=== PATIENT | male | born 1930 | race Caucasian/White ===

== ENCOUNTER 2018-05-17 06:52 | Inpatient (IN) | payer MEDICARE, BC ==
[~2018-05-17] VITALS: Ht 177.8 cm; Wt 90.0 kg
[~2018-05-17 06:52] MED LIST: ACET-896 PO; ASPI-1264 PO; ATOR20TA PO; MULT1TAB74 PO; POTA8CAP9 PO; VANC250C12 PO
[2018-05-17] MEDS ORDERED: ondansetron/PF 4mg/2ml inj IV ONE (07:00)
[2018-05-17] MEDS ORDERED: normal saline 1000ML IV soln IVB ONE (07:00)
[2018-05-17] MEDS ORDERED: LORazepam 2 mg/ml vial IV ONE (07:00)
[2018-05-17 07:28] LABS: BASOPHILS % (AUTO) 0.3 % (0-1); EOSINOPHILS % (AUTO) 0.1 % (0-6); HEMATOCRIT 41.7 % (42.0-52.0); HEMOGLOBIN 14.3 g/dl (14.0-17.9); LYMPHOCYTES # (AUTO) 0.7 X10'3 (1.1-4.8); LYMPHOCYTES % (AUTO) 5.5 % (21-51); MEAN CORPUSCULAR HEMOGLOBIN 35.6 PG (27.0-31.0); MEAN CORPUSCULAR HGB CONC 34.3 % (33.0-36.5); MEAN CORPUSCULAR VOLUME 103.8 FL (78-98); MEAN PLATELET VOLUME 8.6 FL (7.4-10.4); MONOCYTES % (AUTO) 7.8 % (2-12); NEUTROPHILS # (AUTO) 11.3 X10'3 (1.8-7.7); NEUTROPHILS % (AUTO) 86.3 % (42-75); PLATELET COUNT 224 X10'3 (140-440); RED BLOOD COUNT 4.01 X10'6 (4.70-6.10); WHITE BLOOD COUNT 13.1 X10'3 (4.5-11.0)
[2018-05-17 07:31] LABS: INR 1.1 INR; PARTIAL THROMBOPLASTIN TIME 27 SECONDS (22-32); PROTHROMBIN TIME 11.2 SECONDS (9.0-12.0)
[2018-05-17 07:37] LABS: ALANINE AMINOTRANSFERASE 43 U/L (12-78); ALBUMIN 3.7 G/DL (3.4-5.0); ALBUMIN/GLOBULIN RATIO 1.1 (1.1-1.5); ALKALINE PHOSPHATASE 75 IU/L (46-116); ANION GAP 15 (8-16); ASPARTATE AMINO TRANSFERASE 32 U/L (10-37); BILIRUBIN,TOTAL 1.5 MG/DL (0.1-1.0); BLOOD UREA NITROGEN 27 MG/DL (7-18); BUN/CREATININE RATIO 12.9 (5.4-32.0); CALCIUM 8.1 MG/DL (8.5-10.1); CHLORIDE 109 MMOL/L (99-107); GLUCOSE 148 MG/DL (70-104); SODIUM 143 MMOL/L (135-145); TOTAL CARBON DIOXIDE 19.3 MMOL/L (24-32); TOTAL PROTEIN 7.2 G/DL (6.4-8.2); eGFR 30 ML/MIN
[2018-05-17 07:44] LABS: LIPASE 64 U/L (73-393)
[2018-05-17] MEDS ORDERED: normal saline 1000ml 1,000 ML IV ONE ×2 (07:45→09:10)
[2018-05-17] MEDS ORDERED: iohexol 350MG/ML 100ml bottle IV ONE (07:53)
[2018-05-17] MEDS ORDERED: potassium Cl 20 mEq SR tablet PO STA (07:55)
[2018-05-17] MEDS ORDERED: potassium 10mEq/100ml NS w/LIDOcaine (10mg/bag) IV ONE (07:55)
[2018-05-17 08:07] LABS: CLARITY,URINE CLOUDY (Clear); COLOR,URINE YELLOW (Yellow); GLUCOSE, URINE NEGATIVE (Neg); KETONES,URINE 15 mg/dl (Neg); LEUKOCYTE ESTERASE ,URINE NEGATIVE (Neg); NITRITES, URINE NEGATIVE (Neg); OCCULT BLOOD,URINE TRACE-INTACT (Neg); PROTEIN,URINE 30 mg/dl (Neg)
[2018-05-17 08:08] LABS: UA COLLECTION TYPE STRAIGHT CATH
[2018-05-17 08:13] LABS: MAGNESIUM 1.3 MG/DL (1.5-2.4)
[2018-05-17 08:40] LABS: BACTERIA,URINE 1+ /HPF (Neg); MUCUS STRANDS FEW /LPF (Neg); SQUAMOUS EPITHELIAL CELL,UR MODERATE /LPF (FEW); WBC,URINE 0-4 /HPF (0-4)
[2018-05-17 09:01] LABS: ABG BASE EXCESS -8.3 mmol/L (-2.0-3.0); ABG HCO3 17.3 mmol/L (22.0-26.0); ABG PCO2 (T) 36.3 mmHg (35.0-48.0); ABG PH (T) 7.297 (7.350-7.450); ABG PO2 (T) 72.1 mmHg (83-108); ALLEN'S TEST Positive; FCOHb 0.8 % (0.5-1.5); FMetHb 0.3 % (0.3-1.12); TOTAL HEMOGLOBIN 13.7 G/dl (14.0-18.0)
[2018-05-17] MEDS ORDERED: magnesium 4gm in 100ml NS 100 ML IV PRN (10:00)
[2018-05-17] MEDS ORDERED: HYDROcodone/acetaminophen 5mg/325mg tablet PO PRN (10:00)
[2018-05-17] MEDS ORDERED: potassium Cl 40MEQ/NS 500ml 500 ML IV PRN ×2 (10:00)
[2018-05-17] MEDS ORDERED: HYDROcodone/acetaminophen 10/325mg tab PO PRN (10:00)
[2018-05-17] MEDS ORDERED: acetaminophen 325mg tablet PO PRN ×2 (10:00)
[2018-05-17] MEDS ORDERED: magnesium 1gm/100ml D5W IVPB 100 ML IV PRN (10:00)
[2018-05-17] MEDS ORDERED: ondansetron/PF 4mg/2ml inj IV PRN (10:00)
[2018-05-17] MEDS ORDERED: potassium Cl 20 mEq SR tablet PO PRN (10:00)
[2018-05-17] MEDS ORDERED: VIT1CAPS9 PO (10:03)
[2018-05-17] MEDS ORDERED: FEXO-124 PO (10:03)
[2018-05-17] MEDS ORDERED: LISI1TAB13 PO (10:03)
[2018-05-17] MEDS ORDERED: CLOP75TA35 PO (10:03)
[2018-05-17] MEDS ORDERED: ATOR80TA PO (10:03)
[2018-05-17] MEDS ORDERED: CHOL500011 PO (10:03)
[2018-05-17] MEDS ORDERED: MULT-16 PO (10:03)
[2018-05-17] MEDS: normal saline 1000ml 1,000 ML IV SCH ×2 (10:45→21:31)
[2018-05-17 12:00] VITALS: BP 91/61
[2018-05-17] MEDS: potassium Cl 20 mEq SR tablet PO PRN ×2 (13:22→18:23)
[2018-05-17] MEDS: magnesium Cl slow-release 64mg tablet PO PRN (13:22)
[2018-05-17 14:27] LABS: C DIFF ANTIGEN NEGATIVE (NEGATIVE); C DIFF SPECIMEN=DIARRHEA? ACCEPTABLE; C DIFFICILE TOXINS A&B NEGATIVE (Neg)
[2018-05-17] MEDS: metroNIDAZOLE-Flagyl 500mg/NS 100 ML IV SCH (16:08)
[2018-05-17 18:00] VITALS: BP 103/53
[2018-05-17] MEDS ORDERED: temazepam 15mg capsule PO PRN (21:00)
[2018-05-17] MEDS: heparin, porcine 5000 units/ml vial SQ SCH (21:30)
[2018-05-17 22:00] VITALS: BP 98/49
[2018-05-18] MEDS: metroNIDAZOLE-Flagyl 500mg/NS 100 ML IV SCH ×3 (00:35→16:08)
[2018-05-18 06:00] VITALS: BP 88/52
[2018-05-18 06:03] LABS: BASOPHILS % (AUTO) 0.2 % (0-1); EOSINOPHILS # (AUTO) 0.1 X10'3 (0-0.9); EOSINOPHILS % (AUTO) 2.6 % (0-6); HEMATOCRIT 35.6 % (42.0-52.0); LYMPHOCYTES # (AUTO) 0.8 X10'3 (1.1-4.8); LYMPHOCYTES % (AUTO) 18.4 % (21-51); MEAN CORPUSCULAR HEMOGLOBIN 35.2 PG (27.0-31.0); MEAN CORPUSCULAR HGB CONC 33.7 % (33.0-36.5); MEAN CORPUSCULAR VOLUME 104.4 FL (78-98); MONOCYTES # (AUTO) 0.7 X10'3 (0-0.9); MONOCYTES % (AUTO) 14.4 % (2-12); NEUTROPHILS % (AUTO) 64.4 % (42-75); PLATELET COUNT 159 X10'3 (140-440); RED BLOOD COUNT 3.41 X10'6 (4.70-6.10); RED CELL DISTRIBUTION WIDTH 14.3 % (11.5-14.5); WHITE BLOOD COUNT 4.6 X10'3 (4.5-11.0)
[2018-05-18 06:15] LABS: ALBUMIN 2.9 G/DL (3.4-5.0); ANION GAP 10 (8-16); BLOOD UREA NITROGEN 16 MG/DL (7-18); BUN/CREATININE RATIO 18.8 (5.4-32.0); CHLORIDE 117 MMOL/L (99-107); CREATININE 0.85 MG/DL (0.60-1.10); GLUCOSE 87 MG/DL (70-104); MAGNESIUM 1.3 MG/DL (1.5-2.4); POTASSIUM 4.3 MMOL/L (3.5-5.1); SODIUM 145 MMOL/L (135-145); TOTAL CARBON DIOXIDE 17.8 MMOL/L (24-32); eGFR 85 ML/MIN
[2018-05-18 07:15] VITALS: BP 93/55
[2018-05-18] MEDS: K and/or MAG REPLACEMENT MC SCH ×2 (07:16→07:17)
[2018-05-18] MEDS: loratadine 10mg tablet PO SCH (07:26)
[2018-05-18] MEDS: heparin, porcine 5000 units/ml vial SQ SCH ×2 (07:27→20:15)
[2018-05-18] MEDS: clopidogrel 75mg tablet PO SCH (07:27)
[2018-05-18] MEDS: magnesium Cl slow-release 64mg tablet PO PRN (07:27)
[2018-05-18] MEDS: normal saline 1000ml 1,000 ML IV SCH ×2 (07:32→16:09)
[2018-05-18 10:00] VITALS: BP 98/53
[2018-05-18] MEDS: sodium bicarbonate 650mg tablet PO SCH ×2 (14:32→22:31)
[2018-05-18] MEDS ORDERED: levoFLOXACIN-Levaquin 500mg/D5 100 ML IV SCH (16:45)
[2018-05-18] MEDS: sodium bicarbonate (8.4%) inj. 100 MEQ in dextrose 5%-water 1,000 ML IV SCH (17:36)
[2018-05-18 18:00] VITALS: BP 107/52
[2018-05-18 22:00] VITALS: BP 91/54
[2018-05-18] MEDS: metroNIDAZOLE 500mg tablet PO SCH (23:49)
[2018-05-19 06:58] VITALS: BP 111/64
[2018-05-19 07:10] LABS: BASOPHILS % (AUTO) 0.2 % (0-1); EOSINOPHILS # (AUTO) 0.2 X10'3 (0-0.9); EOSINOPHILS % (AUTO) 4.1 % (0-6); HEMATOCRIT 36.9 % (42.0-52.0); HEMOGLOBIN 12.3 g/dl (14.0-17.9); LYMPHOCYTES # (AUTO) 1.1 X10'3 (1.1-4.8); MEAN CORPUSCULAR HEMOGLOBIN 34.8 PG (27.0-31.0); MEAN CORPUSCULAR HGB CONC 33.4 % (33.0-36.5); MEAN CORPUSCULAR VOLUME 104.1 FL (78-98); MEAN PLATELET VOLUME 9.2 FL (7.4-10.4); MONOCYTES # (AUTO) 0.7 X10'3 (0-0.9); MONOCYTES % (AUTO) 13.6 % (2-12); NEUTROPHILS # (AUTO) 3.1 X10'3 (1.8-7.7); NEUTROPHILS % (AUTO) 61.1 % (42-75); PLATELET COUNT 158 X10'3 (140-440); RED BLOOD COUNT 3.55 X10'6 (4.70-6.10); WHITE BLOOD COUNT 5.1 X10'3 (4.5-11.0)
[2018-05-19] MEDS: K and/or MAG REPLACEMENT MC SCH (07:12)
[2018-05-19] MEDS: heparin, porcine 5000 units/ml vial SQ SCH (07:26)
[2018-05-19] MEDS: metroNIDAZOLE 500mg tablet PO SCH (07:26)
[2018-05-19] MEDS: sodium bicarbonate (8.4%) inj. 100 MEQ in dextrose 5%-water 1,000 ML IV SCH (07:26)
[2018-05-19] MEDS: clopidogrel 75mg tablet PO SCH (07:26)
[2018-05-19] MEDS: loratadine 10mg tablet PO SCH (07:26)
[2018-05-19 07:27] LABS: ANION GAP 8 (8-16); BLOOD UREA NITROGEN 11 MG/DL (7-18); BUN/CREATININE RATIO 13.6 (5.4-32.0); CALCIUM 8.1 MG/DL (8.5-10.1); CHLORIDE 112 MMOL/L (99-107); CREATININE 0.81 MG/DL (0.60-1.10); GLUCOSE 90 MG/DL (70-104); MAGNESIUM 1.3 MG/DL (1.5-2.4); POTASSIUM 3.7 MMOL/L (3.5-5.1); SODIUM 142 MMOL/L (135-145); TOTAL CARBON DIOXIDE 21.7 MMOL/L (24-32); eGFR 90 ML/MIN
[2018-05-19] MEDS: sodium bicarbonate 650mg tablet PO SCH (07:27)
[2018-05-19] MEDS ORDERED: SODI650T29 PO (09:38)
[2018-05-19] MEDS ORDERED: METR500T4 PO (09:38)
[2018-05-19] MEDS ORDERED: LEVO500T89 PO (09:38)
[2018-05-19 10:00] VITALS: BP 118/69
[2018-05-19] MEDS ORDERED: levoFLOXACIN 500mg tablet PO SCH (11:00)
[2018-05-19] MEDS ORDERED: MAGN400C PO (17:18)
== END 2018-05-19 10:45 | DRG 391 ==
LOC: ER 06:52 → ED HOLD 09:58 → EDBEDREQ 11:33 → ORTHO 4S 12:00
PROVIDERS: ADMIT Internal Medicine; ATTEND Family Medicine
PROC: BW211ZZ Computerized Tomography (CT Scan) of Abdomen and Pelvis using Low Osmolar Contrast (ICD-10-PCS; principal; 2018-05-17)
DX: K52.9 Noninfective gastroenteritis and colitis, unspecified (principal); N17.0 Acute kidney failure with tubular necrosis; N39.0 Urinary tract infection, site not specified; E87.2 Acidosis; E78.00 Pure hypercholesterolemia, unspecified; E78.5 Hyperlipidemia, unspecified; E83.42 Hypomagnesemia; E86.0 Dehydration; I10 Essential (primary) hypertension; I25.10 Atherosclerotic heart disease of native coronary artery without angina pectoris; K57.30 Diverticulosis of large intestine without perforation or abscess without bleeding; K76.9 Liver disease, unspecified; I95.9 Hypotension, unspecified; Z66 Do not resuscitate; Z88.1 Allergy status to other antibiotic agents; Z79.02 Long term (current) use of antithrombotics/antiplatelets; Z79.899 Other long term (current) drug therapy; Z86.73 Personal history of transient ischemic attack (TIA), and cerebral infarction without residual deficits
CPT/HCPCS: 36415; 36600; 71045; 71275; 74176; 80048; 80053; 81001; 82803; 83605; 83690; 83735; 83880; 84100; 84484; 85018; 85025; 85610; 85730; 87040; 87045; 87046; 87070; 87324; 87449; 89055; 93005; 96361; 96374; 96375; 99285; A4353; A6449; J1644; J2060; J2405; J3480; J3490; J7030; Q9967

== ENCOUNTER 2019-10-05 01:09 | Emergency (ER) | payer MEDICARE, BC ==
[~2019-10-05] VITALS: Ht 172.7 cm; Wt 90.9 kg
[~2019-10-05 01:09] MED LIST changes: -ACET-896 PO; -ASPI-1264 PO; -ATOR20TA PO; +ATOR80TA PO; +CHOL500011 PO; +CLOP75TA35 PO; +FEXO-124 PO; +LEVO500T89 PO; +LISI1TAB29 PO; +MAGN400C PO; +METR-159 PO; +MULT-16 PO; -MULT1TAB74 PO; +POTA8CAP20 PO; -POTA8CAP9 PO; +SODI650T29 PO; -VANC250C12 PO; +VIT1CAPS9 PO
[2019-10-05] MEDS ORDERED: CLIN-90 PO (01:48)
[2019-10-05] MEDS ORDERED: clindamycin phosphate 150mg/ml inj. IM ONE (01:50)
[2019-10-05 02:18] VITALS: BP 153/89
== END 2019-10-05 02:20 | disposition home or self-care (01) ==
LOC: ER 01:10
DX: L03.116 Cellulitis of left lower limb (principal); E78.00 Pure hypercholesterolemia, unspecified; I10 Essential (primary) hypertension; Z86.73 Personal history of transient ischemic attack (TIA), and cerebral infarction without residual deficits; Z88.1 Allergy status to other antibiotic agents; Z79.899 Other long term (current) drug therapy
CPT/HCPCS: 73610; 73630; 96372; 99284; J3490

== ENCOUNTER 2020-01-01 12:24 | Emergency (ER) | payer BC, MEDICARE ==
[~2020-01-01] VITALS: Ht 167.6 cm; Wt 89.1 kg
[~2020-01-01 12:24] MED LIST changes: +CLIN-97 PO
[2020-01-01 12:59] LABS: BASOPHILS % (AUTO) 0.4 % (0-1); EOSINOPHILS # (AUTO) 0.2 X10'3 (0-0.9); EOSINOPHILS % (AUTO) 2.3 % (0-6); HEMATOCRIT 46.2 % (42.0-52.0); HEMOGLOBIN 15.7 g/dl (14.0-17.9); LYMPHOCYTES # (AUTO) 1.6 X10'3 (1.1-4.8); LYMPHOCYTES % (AUTO) 22.4 % (21-51); MEAN CORPUSCULAR HEMOGLOBIN 34.6 PG (27.0-31.0); MEAN CORPUSCULAR VOLUME 101.5 FL (78-98); MEAN PLATELET VOLUME 8.3 FL (7.4-10.4); MONOCYTES # (AUTO) 0.6 X10'3 (0-0.9); MONOCYTES % (AUTO) 8.8 % (2-12); NEUTROPHILS # (AUTO) 4.6 X10'3 (1.8-7.7); NEUTROPHILS % (AUTO) 66.1 % (42-75); PLATELET COUNT 251 X10'3 (140-440); RED BLOOD COUNT 4.55 X10'6 (4.70-6.10); RED CELL DISTRIBUTION WIDTH 12.9 % (11.5-14.5); WHITE BLOOD COUNT 6.9 X10'3 (4.5-11.0)
[2020-01-01 13:13] LABS: ALANINE AMINOTRANSFERASE 43 U/L (12-78); ALBUMIN 3.7 G/DL (3.4-5.0); ALKALINE PHOSPHATASE 73 IU/L (46-116); ANION GAP 10 (8-16); ASPARTATE AMINO TRANSFERASE 37 U/L (10-37); BILIRUBIN,TOTAL 1.8 MG/DL (0.1-1.0); BLOOD UREA NITROGEN 8 MG/DL (7-18); BUN/CREATININE RATIO 10.8 (5.4-32.0); CALCIUM 9.1 MG/DL (8.5-10.1); CHLORIDE 109 MMOL/L (99-107); CREATININE 0.74 MG/DL (0.60-1.10); GLUCOSE 95 MG/DL (70-104); POTASSIUM 3.8 MMOL/L (3.5-5.1); SODIUM 147 MMOL/L (135-145); TOTAL CARBON DIOXIDE 28.4 MMOL/L (24-32); TOTAL PROTEIN 7.5 G/DL (6.4-8.2); eGFR > 90 ML/MIN
[2020-01-01] MEDS ORDERED: normal saline 1000ML IV soln IVB ONE (13:30)
--- NOTE | 2020-01-01 13:59 | NUR ---
spoke to esperanza re: pt BP 138/112, he states that this is ok
[2020-01-01 14:12] LABS: CLARITY,URINE SLIGHTLY CLOUDY (Clear); COLOR,URINE YELLOW (Yellow); GLUCOSE, URINE NEGATIVE (Neg); KETONES,URINE NEGATIVE (Neg); LEUKOCYTE ESTERASE ,URINE NEGATIVE (Neg); NITRITES, URINE NEGATIVE (Neg); OCCULT BLOOD,URINE LARGE (Neg); PH,URINE 6.5 (4.8-8.0); PROTEIN,URINE NEGATIVE (Neg); UROBILINOGEN,URINE 0.2 E.U/dL (0.2-1.0)
[2020-01-01 14:18] LABS: UA COLLECTION TYPE URINAL
[2020-01-01 14:30] LABS: MUCUS STRANDS FEW /LPF (Neg); SQUAMOUS EPITHELIAL CELL,UR FEW /LPF (FEW)
[2020-01-01 14:31] LABS: RBC,URINE TNTC /HPF (0-2); WBC,URINE 0-4 /HPF (0-4)
[2020-01-01 14:32] LABS: BACTERIA,URINE 1+ /HPF (Neg)
[2020-01-01 16:53] VITALS: BP 165/95
== END 2020-01-01 17:49 | disposition home or self-care (01) ==
LOC: ER 12:24
DX: R42 Dizziness and giddiness (principal); R53.1 Weakness; M79.10 Myalgia, unspecified site; E78.00 Pure hypercholesterolemia, unspecified; I10 Essential (primary) hypertension; Z86.73 Personal history of transient ischemic attack (TIA), and cerebral infarction without residual deficits; Z88.1 Allergy status to other antibiotic agents; Z79.2 Long term (current) use of antibiotics; Z79.899 Other long term (current) drug therapy
CPT/HCPCS: 36415; 71045; 80053; 81001; 84484; 85025; 93005; 99285; J7030

== ENCOUNTER 2020-04-09 10:52 | Observation (INO) | payer BC, MEDICARE ==
[~2020-04-09] VITALS: Ht 172.7 cm; Wt 85.0 kg
[2020-04-09 11:17] LABS: BASOPHILS % (AUTO) 0.1 % (0-1); EOSINOPHILS # (AUTO) 0.2 X10'3 (0-0.9); EOSINOPHILS % (AUTO) 1.8 % (0-6); HEMATOCRIT 36.8 % (42.0-52.0); HEMOGLOBIN 12.7 g/dl (14.0-17.9); LYMPHOCYTES # (AUTO) 1.5 X10'3 (1.1-4.8); LYMPHOCYTES % (AUTO) 17.6 % (21-51); MEAN CORPUSCULAR HEMOGLOBIN 35.6 PG (27.0-31.0); MEAN CORPUSCULAR HGB CONC 34.5 g/dL (33.0-36.5); MEAN PLATELET VOLUME 8.5 FL (7.4-10.4); MONOCYTES # (AUTO) 0.7 X10'3 (0-0.9); MONOCYTES % (AUTO) 8.2 % (2-12); NEUTROPHILS # (AUTO) 6.1 X10'3 (1.8-7.7); NEUTROPHILS % (AUTO) 72.3 % (42-75); PLATELET COUNT 187 X10'3 (140-440); RED BLOOD COUNT 3.57 X10'6 (4.70-6.10); RED CELL DISTRIBUTION WIDTH 13.4 % (11.5-14.5); WHITE BLOOD COUNT 8.4 X10'3 (4.5-11.0)
[2020-04-09 11:29] LABS: ALANINE AMINOTRANSFERASE 34 U/L (12-78); ALBUMIN 2.9 G/DL (3.4-5.0); ALBUMIN/GLOBULIN RATIO 1.1 (1.1-1.5); ALKALINE PHOSPHATASE 66 IU/L (46-116); ANION GAP 8 (8-16); ASPARTATE AMINO TRANSFERASE 39 U/L (10-37); BLOOD UREA NITROGEN 5 MG/DL (7-18); CALCIUM 7.3 MG/DL (8.5-10.1); CHLORIDE 115 MMOL/L (99-107); CREATININE 0.71 MG/DL (0.60-1.10); POTASSIUM 3.1 MMOL/L (3.5-5.1); SODIUM 149 MMOL/L (135-145); TOTAL CARBON DIOXIDE 25.8 MMOL/L (24-32); TOTAL PROTEIN 5.6 G/DL (6.4-8.2); eGFR > 90 ML/MIN
[2020-04-09 11:31] LABS: GLUCOSE 105 MG/DL (70-104)
[2020-04-09] MEDS ORDERED: aspirin 325mg tablet PO ONE (11:40)
[2020-04-09] MEDS ORDERED: fentaNYL/PF 50MCG/1 ML 2ML syringe IV ONE (11:40)
[2020-04-09] MEDS ORDERED: potassium Cl 20 mEq SR tablet PO STA (11:42)
[2020-04-09] MEDS ORDERED: ASPI-128 PO (12:02)
[2020-04-09] MEDS ORDERED: BETA1TAB20 PO (12:02)
[2020-04-09] MEDS ORDERED: CETI-90 PO (12:02)
[2020-04-09] MEDS ORDERED: LISI-644 PO (12:02)
[2020-04-09] MEDS ORDERED: HYDROcodone/acetaminophen 10/325mg tab PO PRN (12:20)
[2020-04-09] MEDS ORDERED: ondansetron/PF 4mg/2ml inj IV PRN (12:20)
[2020-04-09] MEDS ORDERED: mag hydrox/Alum hydrox/simeth 30ml oral suspension PO PRN (12:20)
[2020-04-09] MEDS ORDERED: magnesium Cl slow-release 64mg tablet PO PRN (12:20)
[2020-04-09] MEDS ORDERED: magnesium 2GM in 50ml NS 50 ML IV PRN (12:20)
[2020-04-09] MEDS ORDERED: potassium CL 10mEq/100ml bag 100 ML IV PRN ×2 (12:20)
[2020-04-09] MEDS ORDERED: magnesium 4gm in 100ml NS 100 ML IV PRN (12:20)
[2020-04-09] MEDS ORDERED: morphine 2 MG/ML inj. syringe IV PRN (12:20)
[2020-04-09] MEDS ORDERED: HYDROcodone/acetaminophen 5mg/325mg tablet PO PRN (12:20)
[2020-04-09] MEDS ORDERED: potassium Cl 20 mEq SR tablet PO PRN (12:20)
[2020-04-09] MEDS ORDERED: magnesium hydroxide 30ml (MOM) UD suspension PO PRN (12:20)
[2020-04-09] MEDS ORDERED: acetaminophen 325mg tablet PO PRN ×2 (12:20)
[2020-04-09] MEDS ORDERED: aspirin/acetaminophen/caffeine tablet PO PRN (12:40)
[2020-04-09] MEDS: clopidogrel 75mg tablet PO SCH (12:40)
--- NOTE | 2020-04-09 14:15 | NUR ---
Recieved report from emergency room FELICIA Adamson. Patient is in room 3028a. Vital signs are 105/56, 67, 94% on 2L, 18 respirations, 97.0 axillary. All needs met at this time. Addendum: 04/09/20 at 1432 by Usha Harper RN ED nurse reports that patient verbalized that he would like to be a DNR, and has the paper work on him. Will notify hospitalist.
--- NOTE | 2020-04-09 14:50 | NUR ---
Awaiting MD orders. PAGER ID: [phone] MESSAGE: Re: [id number]. Sean Mcquene. U. Pt. daughter at bedside. Both vocalize that patient is a DNR and has an Advanced Directive on file at [facility] and within our chart. Please change. Usha Hernandez, #[id number]
[2020-04-09 15:00] VITALS: BP 109/61
--- NOTE | 2020-04-09 15:35 | NUR ---
Awaiting MD orders. PAGER ID: [phone] MESSAGE: Re: Sean Mcqueen. [id number]. PCU. Groin has mild erythema, with moisture and smell of yeast. Would it be possible to order Nystatin powder? Thanks. Usha Hernandez, #[id number]
[2020-04-09 15:40] LABS: HEMOGLOBIN A1C 6.1 % (4.5-6.2)
[2020-04-09 18:00] VITALS: BP 103/58
[2020-04-09 18:10] VITALS: BP 109/61
--- NOTE | 2020-04-09 18:20 | NUR ---
Problems reprioritized. Patient report given, questions answered & plan of care reviewed with FELICIA Gentile.
[2020-04-09] MEDS: potassium Cl 20 mEq SR tablet PO PRN (18:39)
[2020-04-09] MEDS: docusate sod 100mg capsule PO SCH (19:49)
[2020-04-09] MEDS: potassium chloride 8mEq ER tablet PO SCH (19:49)
[2020-04-09] MEDS: K and/or MAG REPLACEMENT MC SCH (19:50)
[2020-04-09] MEDS: nystatin 15 GM powder TP SCH (20:30)
[2020-04-09] MEDS: atorvastatin 20mg tablet PO SCH (20:30)
[2020-04-10 02:00] VITALS: BP 110/78
[2020-04-10] MEDS: potassium Cl 20 mEq SR tablet PO PRN (02:18)
[2020-04-10 05:51] LABS: BASOPHILS % (AUTO) 0.3 % (0-1); EOSINOPHILS # (AUTO) 0.2 X10'3 (0-0.9); EOSINOPHILS % (AUTO) 2.3 % (0-6); HEMATOCRIT 39.6 % (42.0-52.0); HEMOGLOBIN 13.6 g/dl (14.0-17.9); LYMPHOCYTES # (AUTO) 1.2 X10'3 (1.1-4.8); LYMPHOCYTES % (AUTO) 16.9 % (21-51); MEAN CORPUSCULAR HEMOGLOBIN 35.1 PG (27.0-31.0); MEAN CORPUSCULAR HGB CONC 34.2 g/dL (33.0-36.5); MEAN CORPUSCULAR VOLUME 102.7 FL (78-98); MEAN PLATELET VOLUME 9.1 FL (7.4-10.4); MONOCYTES # (AUTO) 0.7 X10'3 (0-0.9); MONOCYTES % (AUTO) 10.5 % (2-12); PLATELET COUNT 192 X10'3 (140-440); RED BLOOD COUNT 3.86 X10'6 (4.70-6.10); RED CELL DISTRIBUTION WIDTH 13.4 % (11.5-14.5); WHITE BLOOD COUNT 7.2 X10'3 (4.5-11.0)
[2020-04-10 06:00] VITALS: BP 140/75
[2020-04-10 06:17] LABS: ALANINE AMINOTRANSFERASE 86 U/L (12-78); ALBUMIN 3.1 G/DL (3.4-5.0); ALBUMIN/GLOBULIN RATIO 1.1 (1.1-1.5); ALKALINE PHOSPHATASE 90 IU/L (46-116); ANION GAP 8 (8-16); ASPARTATE AMINO TRANSFERASE 96 U/L (10-37); BILIRUBIN,TOTAL 2.7 MG/DL (0.1-1.0); BLOOD UREA NITROGEN 6 MG/DL (7-18); BUN/CREATININE RATIO 8.5 (5.4-32.0); CALCIUM 8.6 MG/DL (8.5-10.1); CHLORIDE 113 MMOL/L (99-107); CHOL/HDL RATIO 2.3 (0.00-4.99); CHOLESTEROL 90 MG/DL (0-200); CREATININE 0.71 MG/DL (0.60-1.10); GLUCOSE 85 MG/DL (70-104); HDL CHOLESTEROL 39 MG/DL (35-60); LDL CHOLESTEROL 45 MG/DL (50-100); MAGNESIUM 1.7 MG/DL (1.5-2.4); POTASSIUM 3.8 MMOL/L (3.5-5.1); SODIUM 147 MMOL/L (135-145); TOTAL CARBON DIOXIDE 25.8 MMOL/L (24-32); TRIGLYCERIDES 79 MG/DL (20-135); eGFR > 90 ML/MIN
--- NOTE | 2020-04-10 06:39 | NUR ---
Problems reprioritized. Patient report given, questions answered & plan of care reviewed with FELICIA Yao.
--- NOTE | 2020-04-10 06:41 | NUR ---
Patient in room PCU 3028. I have received report from Najma DUARTE, and had the opportunity to ask questions and assume patient care.
[2020-04-10] MEDS: K and/or MAG REPLACEMENT MC SCH ×2 (07:15→20:00)
[2020-04-10] MEDS: loratadine 10mg tablet PO SCH (07:30)
[2020-04-10] MEDS: lisinopril 20mg tablet PO SCH (07:31)
[2020-04-10] MEDS: vitamin D (cholecalciferol) 1,000 unit tablet PO SCH (07:33)
[2020-04-10] MEDS: clopidogrel 75mg tablet PO SCH (07:34)
[2020-04-10] MEDS: beta-carotene(A) w/C & E + minerals tab PO SCH (07:34)
[2020-04-10] MEDS: enoxaparin 40mg/0.4ml syringe SUBCUT SCH (07:37)
--- NOTE | 2020-04-10 09:57 | NUR ---
PAGER ID: [phone] MESSAGE: [id number] Sean Mcqueen: FYI pt had breakfast and will not be getting a stress test, patient also wants to go home, is getting dressed. thanks pantera
[2020-04-10 11:00] VITALS: BP 140/68
[2020-04-10 15:00] VITALS: BP 134/83
[2020-04-10 18:00] VITALS: BP 145/80
--- NOTE | 2020-04-10 18:50 | NUR ---
Patient in room PCU 3028. I have received report from Najma DUARTE and had the opportunity to ask questions and assume patient care.
[2020-04-10] MEDS: potassium chloride 8mEq ER tablet PO SCH (20:41)
[2020-04-10] MEDS: nystatin 15 GM powder TP SCH (20:41)
[2020-04-10] MEDS: atorvastatin 20mg tablet PO SCH (20:42)
[2020-04-10] MEDS: docusate sod 100mg capsule PO SCH (20:44)
[2020-04-10 22:00] VITALS: BP 134/84
[2020-04-11] VITALS (10 sets, daily range): BP systolic 109–161; BP diastolic 54–89
--- NOTE | 2020-04-11 00:31 | NUR ---
Patient has an IV that's a field start. Patient declines to have a new one placed. IV asymptomatic and flushes well.
[2020-04-11 05:07] LABS: BASOPHILS % (AUTO) 0.3 % (0-1); EOSINOPHILS # (AUTO) 0.2 X10'3 (0-0.9); EOSINOPHILS % (AUTO) 1.9 % (0-6); HEMATOCRIT 43.3 % (42.0-52.0); HEMOGLOBIN 14.9 g/dl (14.0-17.9); LYMPHOCYTES # (AUTO) 1.5 X10'3 (1.1-4.8); LYMPHOCYTES % (AUTO) 16.8 % (21-51); MEAN CORPUSCULAR HGB CONC 34.3 g/dL (33.0-36.5); MEAN CORPUSCULAR VOLUME 101.9 FL (78-98); MONOCYTES # (AUTO) 0.7 X10'3 (0-0.9); MONOCYTES % (AUTO) 8.1 % (2-12); NEUTROPHILS # (AUTO) 6.6 X10'3 (1.8-7.7); NEUTROPHILS % (AUTO) 72.9 % (42-75); PLATELET COUNT 208 X10'3 (140-440); RED BLOOD COUNT 4.25 X10'6 (4.70-6.10); RED CELL DISTRIBUTION WIDTH 13.3 % (11.5-14.5)
[2020-04-11 05:59] LABS: ALANINE AMINOTRANSFERASE 77 U/L (12-78); ALBUMIN 3.5 G/DL (3.4-5.0); ALBUMIN/GLOBULIN RATIO 1.1 (1.1-1.5); ALKALINE PHOSPHATASE 107 IU/L (46-116); ANION GAP 12 (8-16); ASPARTATE AMINO TRANSFERASE 76 U/L (10-37); BILIRUBIN,TOTAL 2.9 MG/DL (0.1-1.0); BLOOD UREA NITROGEN 8 MG/DL (7-18); BUN/CREATININE RATIO 12.1 (5.4-32.0); CHLORIDE 109 MMOL/L (99-107); CREATININE 0.66 MG/DL (0.60-1.10); GLUCOSE 89 MG/DL (70-104); POTASSIUM 3.6 MMOL/L (3.5-5.1); SODIUM 146 MMOL/L (135-145); TOTAL CARBON DIOXIDE 25.1 MMOL/L (24-32); TOTAL PROTEIN 6.8 G/DL (6.4-8.2); eGFR > 90 ML/MIN
--- NOTE | 2020-04-11 06:29 | NUR ---
Problems reprioritized. Patient report given, questions answered & plan of care reviewed with Najma DUARTE.
--- NOTE | 2020-04-11 06:42 | NUR ---
Patient in room PCU 3028. I have received report from Shelbi DUARTE, and had the opportunity to ask questions and assume patient care.
[2020-04-11] MEDS ORDERED: aminophylline 250mg/10ml inj. IV PRN (08:35)
[2020-04-11] MEDS ORDERED: nitroGLYCERIN 0.4mg SUBLingual tab SL PRN (08:35)
[2020-04-11] MEDS ORDERED: metoprolol tartrate 1mg/ml inj IV PRN (08:35)
[2020-04-11] MEDS ORDERED: regadenoson 0.4mg/5ml syringe IV PRN (08:35)
[2020-04-11] MEDS: beta-carotene(A) w/C & E + minerals tab PO SCH (09:01)
[2020-04-11] MEDS: loratadine 10mg tablet PO SCH (09:01)
[2020-04-11] MEDS: clopidogrel 75mg tablet PO SCH (09:02)
[2020-04-11] MEDS: potassium chloride 8mEq ER tablet PO SCH (09:02)
[2020-04-11] MEDS: lisinopril 20mg tablet PO SCH (09:02)
[2020-04-11] MEDS: vitamin D (cholecalciferol) 1,000 unit tablet PO SCH (09:03)
[2020-04-11] MEDS: enoxaparin 40mg/0.4ml syringe SUBCUT SCH (09:03)
[2020-04-11] MEDS: nystatin 15 GM powder TP SCH (09:06)
--- NOTE | 2020-04-11 17:30 | NUR ---
Discharged to care of daughter. Returning to Assisted living. Pt. has PT sessions set up. Instructions for follow up care. All belongings are with Pt. including cell phone and softball winder.
== END 2020-04-11 15:55 | disposition home or self-care (01) ==
LOC: ER 10:52 → ED HOLD 12:17 → EDBEDREQ 13:03 → PCU 3S 14:14
PROVIDERS: ADMIT Internal Medicine; ATTEND Internal Medicine
DX: R07.89 Other chest pain (principal); I10 Essential (primary) hypertension; E78.5 Hyperlipidemia, unspecified; J30.9 Allergic rhinitis, unspecified; E87.6 Hypokalemia; E78.00 Pure hypercholesterolemia, unspecified; Z86.73 Personal history of transient ischemic attack (TIA), and cerebral infarction without residual deficits; Z90.49 Acquired absence of other specified parts of digestive tract; Z79.02 Long term (current) use of antithrombotics/antiplatelets; Z79.82 Long term (current) use of aspirin; Z79.899 Other long term (current) drug therapy; Z88.1 Allergy status to other antibiotic agents
CPT/HCPCS: 36415; 71045; 78452; 80053; 80061; 83036; 83735; 84484; 85025; 87081; 93005; 93017; 93306; 96372; 96374; 96375; 99285; A9500; G0378; J2270; J2785; J3010; J1650